=== PATIENT | male | born 2000 | race African-American/Black ===

== ENCOUNTER 2020-03-08 10:52 | Emergency (ER) | payer OTHER ==
[~2020-03-08] VITALS: Ht 182.9 cm; Wt 81.7 kg
--- NOTE | ~2020-03-08 | EMS ---
[place] [address] EMS Patient Care Report Name: LIZZ DUCKWORTH Room #: REG JENNIFER Ordonez#: [id number] Admission: 03/08/20 Attend Phys: Discharge: Date of : [birth year] Report #: [id number] THIS REPORT FOR: //name// Report Transmitted: 03/08/2020 11:35 EMS Care Summary [place], [place]/[facility] Incident [id number] @ 03/08/2020 10:22 Incident [address] [place] [address] Patient LIZZ DUCKWORTH Male, 19 Years 2000 Patient Address [address] [place] [address] Patient History None Reported, Patient Allergies No known allergies, Patient Medications None Reported, Chief Complaint SEIZURE Disposition Transported No Lights/[place] Dispatch Reason EMS Special Service Transported To [facility] Narrative SCENE: ON ARRIVAL PT FOUND LYING FACE DOWN ON THE FLOOR OF THE LIVING ROOM AT ADDRESS PROVIDED. PT IS ALERT TO VOCAL COMMANDS. PT [place] [address] EMS Patient Care Report Name: LIZZ DUCKWORTH Room #: REG Mery#: [id number] Admission: 03/08/20 Attend Phys: Discharge: Date of : [birth year] Report #: [id number] EXTERNAL INJURIES. PT BROTHER ON SCENE REPORTS THEY HAD BOTH JUST AWOKE AND PT BROTHER WAS IN A DIFFERENT ROOM, HEARD PT FALL, AND FOUND PT IN HIS CURRENT POSITION HAVING WHAT APPEARED TO BE A SEIZURE. PT BROTHER REPORTS PT HAD TWO EPISODES OF SEIZURE TYPE ACTIVITY. PT BROTHER DENIES PT TONY OF SEIZURES. PT BROTHER SATES PT HAS BEEN ACTING FINE ALL DAY AND HAS NOT BEEN COMPLAINING OF ANYTHING. PT IS CONFUSED AND DIAPHORETIC. PT INITIALLY APPEARS POST ICTAL. PT FATHER ARRIVES ON SCENE AND CONFIRMS PT HAS NO MEDICAL HX AND NO HX OF SEIZURES. PT BROTHER STATES THEY BOTH TAKE PERCOCET, BUT HE IS UNSURE IF PT HAS TAKEN ANY TODAY. PT PUPILS ARE NOT PINPOINT. PT FOLLOWS COMMANDS, BUT BECOMES ANGRY AND LASHES OUT, TELLING EMS TO QUIT TOUCHING HIM, ETC. EMS RETRIEVED STAIRCHAIR, AND WHILE ATTEMPTING TO PUT PT IN CHAIR, PT BECAME EXTREMELY DIAPHORETIC, TO THE POINT SWEAT WAS RUNNING OFF HIS BODY. PT RETAINED A STRONG RADIAL PULSE, AND MAINTAINED HIS OWN AIRWAY WITH RESPIRATIONS OF APPROPRIATE RATE AND DEPTH DURING THIS TIME. PT BLOOD SUGAR OBTAINED. WHILE TAKING PT DOWN THE STAIRS, PT WOULD YELL OUT, "HURRY UP! MAN, WHAT ARE YALL EVEN DOING?" PT THEN ASSISTED ONTO EMS STRETCHER. AMBULANCE: 4 LEAD PLACED ON PT. PT BEGAN VOMITING WHAT APPEARED TO BE BILE. PT WOULD SPIT INDISCRIMINATELY ABOUT THE AMBULANCE, AND ON EMS PERSONNEL. DUE TO PT CONDITION, TRANSPORT INITIATED AND NO IV ATTEMPT MADE. PT TRANSPORTED TO [facility]. VITALS MONITORED THROUGHOTU TRANSPORT. NO CHANGES IN PT STATUS EN ROUTE Initial Vitals @10:46P: 71,R: 22,BP: 127/68,Pain: 0/10,GCS: 14,Revised Trauma: 12, @10:48P: 110,R: 20,Pain: 0/10,GCS: 14, @10:45P: 86,R: 20,Pain: 0/10,GCS: 15,Glucose: 140,Revised Trauma: 12, Assessments @10:31MENTAL:Confused,Person Oriented,SKIN:Diaphoresis,HEENT:Head/Face: No Abnormalities,Neck/Airway: No Abnormalities,LUNG SOUNDS:General: No Abnormalities,ABDOMEN:General: No Abnormalities,PELVIS//GI:No Abnormalities,EXTREMITIES:Left Arm: No Abnormalities,Right Arm: No Abnormalities,Left Leg: No Abnormalities,Right Leg: No Abnormalities,PULSE:NEURO:No Abnormalities,@10:45MENTAL:Confused,SKIN:Diaphoresis,HEENT:Head/Face: No Abnormalities,Neck/Airway: No Abnormalities,LUNG SOUNDS:General: Nausea,General: Vomiting,ABDOMEN:General: Nausea,General: Vomiting,PELVIS//GI:No Abnormalities,EXTREMITIES:Left Arm: No Abnormalities,Right Arm: No Abnormalities,Left Leg: No Abnormalities,Right Leg: No Abnormalities,PULSE:NEURO:No Abnormalities, Impression Altered Mental Status Procedures @10:30ALS AssessmentResponse: UnchangedSucceeded@10:43StretcherResponse: [address] [address] EMS Patient Care Report Name: LIZZ DUCKWORTH Room #: REG Mery#: [id number] Admission: 03/08/20 Attend Phys: Discharge: Date of : [birth year] Report #: [id number] Unchanged@10:41StairchairResponse: Unchanged@10:43Narcan - 0.5 Milligrams (mg) - IntranasalResponse: Unchanged@10:43Narcan - 0.5 Milligrams (mg) - IntranasalResponse: Unchanged Timeline 10:20,Call Received 10:20,Dispatch Notified 10:22,Dispatched 10:23,En Route 10:28,On Scene 10:30,At Patient 10:30,ALS Assessment,Response: UnchangedSucceeded, 10:41,Stairchair,Response: Unchanged 10:43,Narcan - 0.5 Milligrams (mg) - Intranasal,Response: Unchanged 10:43,Stretcher,Response: Unchanged 10:43,Narcan - 0.5 Milligrams (mg) - Intranasal,Response: Unchanged 10:45,BP: 118/ M,PULSE: 86,RR: 20 R,SPO2: Ox,ETCO2: ,B,PAIN: 0,GCS: 15, 10:46,BP: 127/68 M,PULSE: 71,RR: 22 R,SPO2: Ox,ETCO2: ,BG: ,PAIN: 0,GCS: 14, 10:47,Depart Scene 10:48,BP: / M,PULSE: 110,RR: 20 R,SPO2: Ox,ETCO2: ,BG: ,PAIN: 0,GCS: 14, 10:48,At Destination 11:18,Call Closed Disclaimer v1.1 Copyright 2020 [employer] This EMS Care Summary contains data elements from the applicable legal record (which may be displayed differently). It is designed to provide pertinent information for the following purposes: continuity of care, clinical quality, and state data reporting. The complete legal record is available to ED staff and administrators of the receiving hospital in [employer] Patient Tracker. All data is provided "as is."
[2020-03-08 11:07] LABS: ABSOLUTE NEUTROPHILS 4.7 thou/uL (1.4-8.2); BASOPHILS 0.8 % (0.0-2.0); EOSINOPHILS 2.2 % (0.0-3.0); HEMATOCRIT 41.6 % (42.0-52.0); HEMOGLOBIN 13.3 gm/dL (14.0-18.0); LYMPHOCYTES 46.7 % (24.0-44.0); MCH 25.7 pg (26.0-34.0); MCHC 31.9 g/dL (28.0-37.0); MCV 80.4 fL (80.0-100.0); MONOCYTES 6.1 % (1.0-8.0); PLATELET COUNT 220 thou/uL (150-400); POLYS 44.2 % (36.0-66.0); RBC 5.18 mil/uL (4.50-6.00); RDW 13.4 % (10.5-14.5); WBC 10.7 thou/uL (4.0-11.0)
[2020-03-08 11:19] LABS: CALCIUM 9.5 mg/dL (8.5-10.1); CREATININE 1.6 mg/dL (0.7-1.3); POTASSIUM 3.5 mmol/L (3.5-5.1)
[2020-03-08 11:23] LABS: MAGNESIUM 2.3 mg/dL (1.8-2.4)
[2020-03-08 11:25] LABS: ALBUMIN 4.3 g/dL (3.4-5.0); TOTAL BILIRUBIN 0.6 mg/dL (0.2-1.0); TOTAL PROTEIN 7.3 g/dL (6.4-8.2)
[2020-03-08 11:50] LABS: SALICYLATE 5.6 mg/dL (2.8-20.0); TROPONIN-I <0.06 ng/mL (<0.06)
[2020-03-08 12:21] LABS: AMP/METHAMP Negative (Negative); BARBITURATES Negative (Negative); BENZODIAZEPINES Negative (Negative); COCAINE Negative (Negative); METHADONE Negative (Negative); OPIATES Negative (Negative); PCP Negative (Negative)
[2020-03-08 12:30] VITALS: BP 109/67
[2020-03-08] MEDS ORDERED: NAPROSYN500 MG PO (12:37)
--- NOTE | 2020-03-08 15:52 | EKG ---
[facility] [place] [address] ELECTROCARDIOGRAM REPORT Name: LIZZ DUCKWORTH Room #: DEP [facility]#: [id number] Admission: 03/08/20 Attend Phys: Discharge: 03/08/20 Date of : [birth year] Report #: [id number] THIS REPORT FOR: cc: FAVIAN - [facility] family physician/PCP FAM - [facility] family physician/PCP Joe Newman MD ~ THIS REPORT FOR: //name// [facility] ED Test Date: 2020-03-08 Test Time: 11:04:30 Pat Name: LIZZ DUCKWORTH Department: Room: Gender: Evening Anchor: ESHEETS : 2000 Requested By: Sundar Kramer Order Number: [id number] MD: Joe Newman Measurements Intervals [place] Rate: 71 P: 44 IN: 173 QRS: 63 QRSD: 97 T: 42 QT: 409 QTc: 445 Interpretive Statements Sinus rhythm RSR' in V1 or V2, probably normal variant ST elev, probable normal early repol pattern Baseline wander in lead(s) V1 No previous ECG available for comparison Electronically Signed On 03-08-2020 15:51:09 CDT by Joe Newman [email or web address] <ELECTRONICALLY SIGNED> By: Joe Newman MD 03/08/20 [id number] [id number] Joe Newman MD /EPI
== END 2020-03-08 12:30 | disposition home or self-care (01) ==
LOC: ER 10:52
PROVIDERS: Emergency Medicine
DX: R56.9 Unspecified convulsions (principal); R51 Headache; R61 Generalized hyperhidrosis; M54.6 Pain in thoracic spine